=== PATIENT | female | born 1995 | race Caucasian/White ===

== ENCOUNTER 2016-11-16 05:30 | Inpatient (IN) | payer BC ==
[~2016-11-16] VITALS: Ht 165.1 cm; Wt 103.9 kg
[2016-11-16] MEDS ORDERED: AMPICILLIN SODIUM 2 GM in NS 100 ML IV ONE (06:15)
[2016-11-16] MEDS ORDERED: LR 1,000 ML IV SCH (06:15)
[2016-11-16] MEDS ORDERED: NALBUPHINE HCL 10 MG/ML AMP IVP PRN (06:15)
[2016-11-16] MEDS ORDERED: TERBUTALINE SULFATE 1 MG/ML VIAL SUBCUT ONE (06:15)
[2016-11-16] MEDS ORDERED: OXYTOCIN/NORMAL SALINE 1,000 ML IV SCH (06:15)
[2016-11-16] MEDS ORDERED: AMPICILLIN SODIUM 2 GM VIAL ONE (06:44)
[2016-11-16 06:46] VITALS: BP_SYST 131
[2016-11-16 07:05] LABS: BASOPHILS # (AUTO) 0.1 K/uL (0.0-0.2); BASOPHILS % (AUTO) 0.6 % (0.0-2.0); EOSINOPHILS # (AUTO) 0.2 K/uL (0.0-0.4); EOSINOPHILS % (AUTO) 1.9 % (0.0-4.0); HEMATOCRIT 36.5 % (36-48); HEMOGLOBIN 12.3 g/dL (12.0-16.0); LYMPHOCYTES # (AUTO) 2.1 K/uL (1.0-5.5); MEAN CORPUSCULAR HEMOGLOBIN 33 pg (27-31); MEAN CORPUSCULAR HGB CONC 34 % (32-36); MEAN CORPUSCULAR VOLUME 96 fL (79.0-98.0); MONOCYTES # (AUTO) 0.5 K/uL (0.0-1.0); MONOCYTES % (AUTO) 5.4 % (1.7-9.3); NEUTROPHILS # (AUTO) 6.7 K/uL (1.8-7.7); NEUTROPHILS % (AUTO) 70.1 % (40.0-70.0); PLATELET COUNT (AUTO) 130 K/uL (130-430); RED BLOOD CELL COUNT(AUTO) 3.79 MIL/uL (4.2-6.2); RED CELL DISTRIBUTION WIDTH 13.8 % (9.0-15.0); WHITE BLOOD COUNT (AUTO) 9.6 K/uL (4.8-10.8)
[2016-11-16] MEDS ORDERED: LR 500 ML IV ONE (09:30)
[2016-11-16] MEDS ORDERED: fentaNYL CITRATE/PF 100 MCG/2 ML AMP EP ONE (09:30)
[2016-11-16] MEDS ORDERED: FENT2mCg/mL-ROPIVA0.2%/NS EPID 150 ML EP SCH (09:30)
[2016-11-16] MEDS ORDERED: ePHEDrine sulfate 50 MG/ML VIAL IVP PRN (09:30)
[2016-11-16] MEDS ORDERED: FENT2mCg/mL-ROPIVA0.2%/NS EPID 150 ML EP ONE (09:31)
[2016-11-16] MEDS ORDERED: fentaNYL CITRATE/PF 100 MCG/2 ML AMP ONE (09:43)
[2016-11-16] MEDS: AMPICILLIN SODIUM 1 GM in NS 50 ML IV SCH ×2 (10:44→14:33)
[2016-11-16] MEDS ORDERED: ROPIVACAINE 40 MG/20 ML AMP EP ONE ×2 (11:58→11:59)
[2016-11-16] MEDS ORDERED: OXYTOCIN/NORMAL SALINE 1,000 ML IV ONE (16:11)
[2016-11-16] MEDS ORDERED: METHYLERGONOVINE MALEATE 0.2 MG TABLET PO PRN (16:15)
[2016-11-16] MEDS ORDERED: ANUSOL 1 EA SUPP.RECT (PREPARATION H) RC PRN (16:15)
[2016-11-16] MEDS ORDERED: DERMOPLAST SPRAY TP PRN (16:15)
[2016-11-16] MEDS ORDERED: SENNOSIDES/DOCUSATE SODIUM 1 TAB TABLET(SENOKOT-S) PO PRN (16:15)
[2016-11-16] MEDS ORDERED: DOCUSATE SODIUM 100 MG CAPSULE PO PRN (16:15)
[2016-11-16] MEDS ORDERED: LANOLIN 7 GM OINT. TP PRN (16:15)
[2016-11-16] MEDS ORDERED: HYDROCORTISONE 0.5%, 28.35 GM TOPICAL CREAM TP PRN (16:15)
[2016-11-16] MEDS ORDERED: GLYCERIN/WITCH HAZEL (TUCKS PADS) TP PRN (16:15)
[2016-11-16] MEDS ORDERED: HYDROcodone/ACETAMIN 5-325 MG TAB (NORCO/ VICODIN) PO PRN (16:15)
[2016-11-16] MEDS ORDERED: OXYCODONE/ACETAMINOPHEN 5-325 TABLET PO PRN (16:15)
[2016-11-16] MEDS ORDERED: TEMAZEPAM 15 MG CAPSULE PO PRN (21:00)
[2016-11-16] MEDS: IBUPROFEN 800 MG TABLET PO PRN (23:22)
[2016-11-17] MEDS: IBUPROFEN 800 MG TABLET PO PRN ×4 (06:01→23:55)
[2016-11-17 07:37] LABS: HEMATOCRIT 32.1 % (36-48); HEMOGLOBIN 10.8 g/dL (12.0-16.0)
[2016-11-18] MEDS: IBUPROFEN 800 MG TABLET PO PRN ×2 (06:01→12:40)
[2016-11-18] MEDS ORDERED: IBUPROFEN 800 MG TABLET ONE (06:02)
[2016-11-21 10:12] LABS: FTA-Ab (T PALLIDUM) Reactive (Non Reactive)
== END 2016-11-18 12:50 | disposition home or self-care (01) | DRG 775 ==
LOC: SPU 05:30
PROVIDERS: ADMIT Specialist; ATTEND Specialist
PROC: 10E0XZZ Delivery of Products of Conception, External Approach (ICD-10-PCS; principal; 2016-11-16)
PROC: 0UQGXZZ Repair Vagina, External Approach (ICD-10-PCS; 2016-11-16)
PROC: 0W8NXZZ Division of Female Perineum, External Approach (ICD-10-PCS; 2016-11-16)
PROC: 3E0R3CZ (ICD-10-PCS; 2016-11-16)
PROC: 00HU33Z Insertion of Infusion Device into Spinal Canal, Percutaneous Approach (ICD-10-PCS; 2016-11-16)
DX: O99.824 Streptococcus B carrier state complicating childbirth (principal); E66.01 Morbid (severe) obesity due to excess calories; O99.214 Obesity complicating childbirth; Z68.38 Body mass index [BMI] 38.0-38.9, adult; Z3A.00 Weeks of gestation of pregnancy not specified; Z37.0 Single live birth; O71.4 Obstetric high vaginal laceration alone
CPT/HCPCS: 36415; 81002-TC; 85018-TC; 85025; 86592; 86780; 86886; 86900; 86901; J0290; J2590; J2795; J3010